=== PATIENT | male | born 1980 | race Caucasian/White ===

== ENCOUNTER 2025-08-23 15:15 | Outpatient (RCR) | payer BC, SELFPAY | END 2025-08-25 16:12 | disposition home or self-care (01) | PROVIDERS: Visit Provider Family Medicine | DX: M25.562 Pain in left knee (principal); M25.552 Pain in left hip; M54.50 Low back pain, unspecified; Z51.89 Encounter for other specified aftercare | CPT/HCPCS: 97110; 97140; 97161 ==